=== PATIENT | female | born 1940 | race African-American/Black ===

== ENCOUNTER 2023-02-08 06:32 | Day surgery (SDC) | payer MEDICARE ==
[2023-02-04 14:35] VITALS: BMI 21.6
[2023-02-08] MEDS ORDERED: Lidocaine 1% MPF 2 ML VIAL ONE (06:47)
[2023-02-08] MEDS ORDERED: PHENYLEPHRINE-NS 100 MCG/ML 10 ML SYRINGE ONE (07:55)
[2023-02-08] MEDS ORDERED: Lidocaine 1% PF 5 ML VIAL ONE (07:55)
[2023-02-08] MEDS ORDERED: PROPOFOL 200 MG/20 ML VIAL ONE (07:55)
== END 2023-02-08 10:05 | disposition home or self-care (01) ==
LOC: SDC 06:32
PROVIDERS: ATTEND Internal Medicine Gastroenterology
PROC: 0DB68ZX Excision of Stomach, Via Natural or Artificial Opening Endoscopic, Diagnostic (ICD-10-PCS; principal; 2023-02-08)
PROC: 0DBM8ZZ Excision of Descending Colon, Via Natural or Artificial Opening Endoscopic (ICD-10-PCS; 2023-02-08)
PROC: 0DBL8ZZ Excision of Transverse Colon, Via Natural or Artificial Opening Endoscopic (ICD-10-PCS; 2023-02-08)
DX: D12.3 Benign neoplasm of transverse colon (principal); D12.4 Benign neoplasm of descending colon; K44.9 Diaphragmatic hernia without obstruction or gangrene; K29.50 Unspecified chronic gastritis without bleeding; B96.81 Helicobacter pylori [H. pylori] as the cause of diseases classified elsewhere; D50.9 Iron deficiency anemia, unspecified; R19.5 Other fecal abnormalities; I13.0 Hypertensive heart and chronic kidney disease with heart failure and stage 1 through stage 4 chronic kidney disease, or unspecified chronic kidney disease; I50.9 Heart failure, unspecified; N18.9 Chronic kidney disease, unspecified; Z79.899 Other long term (current) drug therapy
CPT/HCPCS: 81479; 88305; 88341; 88342; 88361; 88374; J2704